=== PATIENT | female | born 1980 | race African-American/Black ===

== ENCOUNTER 2016-11-28 17:38 | Emergency (ER) | payer MEDICAID, OTHER ==
[~2016-11-28] VITALS: Ht 177.8 cm; Wt 89.8 kg
[~2016-11-28 17:38] MED LIST: IBUPROFEN600 MG PO
--- NOTE | 2016-11-28 18:21 | Emergency Room Report ---
History of Present Illness General Chief Complaint: Upper Extremity Injury Source: Patient Present Illness HPI 36 y/o female c/o right wrist and thumb pain x 2 days. States that she woke up yesterday with thumb pain that has progressively gotten worse. States she does not remember injuring it but believes she may have flailed while sleeping and hit her hand on the headboard. 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 States she does a lot of lifting and use of the right hand / wrist at work and has no hx of previous injury or surgeries of right hand. States pain is worse with pronating right wrist and with movement of thumb. Took 200mg ibuprofen w/o improvement of sxs. Patient denies any numbness, tingling, pressure, paralysis, cyanosis, bruising, loss of sensation, or loss of range of motion. Allergies: Coded Allergies: Nut Tree (Verified Allergy, Severe, Anaphylaxis, 04/10/12) Patient History Past Medical History: see triage record Past Surgical History: none Pertinent Family History: none Last Menstrual Period: 2 years ago (pituitary adenoma) Now: No Immunizations: UTD Reviewed Nursing Documentation: PMH: Agreed, PSxH: Agreed Nursing Documentation-PMH Past Medical History: No History, Except For History Of Psychiatric Problem: Yes - bipolar Review of Systems All Other Systems: negative except mentioned in HPI Physical Exam Vital Signs Date Time Temp Pulse Resp B/P Pulse Ox O2 Delivery O2 Flow Rate FiO2 11/28/16 17:53 98.4 63 14 132/74 98 Room Air Sp02 EP Interpretation: reviewed, normal General Appearance: no apparent distress, alert, GCS 15, non-toxic Head: normocephalic, atraumatic Eyes: bilateral eye normal inspection ENT: normal ENT inspection Neck: normal inspection Respiratory: normal breath sounds, speaking full sentences Cardiovascular #1: normal peripheral pulses Cardiovascular #2: 1+ radial (R), 1+ radial (L) Musculoskeletal: back normal, digits/nails normal, gait/station normal, normal range of motion, tender - extensor surface of left thumb and along volar aspect of right distal radius. Neg Tinels, Neg Phalens Neurologic: alert, oriented x3, responsive, motor strength/tone normal, sensory intact, speech normal Psychiatric: judgement/insight normal, memory normal, mood/affect normal, no suicidal/homicidal ideation Skin: normal color, no rash, warm/dry, well hydrated Lymphatic: no adenopathy Medical Decision Making PA Attestation Dr. Rodas is my supervising physician with whom patient management has been discussed with. ER Course Pt. presents to the ED c/o right wrist pain Ddx considered but are not limited to sprain, strain, fracture, contusion, carpal tunnel, tendonitis Vital signs: are WNL, pt. is afebrile H&PE are most consistent with tendonitis ORDERS: XR right hand ED INTERVENTIONS: Thumb Spika brace DISCHARGE: At this time pt. is stable for d/c to home. Will provide printed patient care instructions, and any necessary prescriptions. Care plan and follow up instructions have been discussed with the patient prior to discharge. Other X-Ray Diagnostic Results Other X-Ray Diagnostic Results : X-Ray Ordered: Right hand Date: Nov 28, 2016 EP Interpretation: Yes Findings: no fractures, no dislocation Number of Views: 3 Last Vital Signs Date Time Temp Pulse Resp B/P Pulse Ox O2 Delivery O2 Flow Rate FiO2 11/28/16 17:53 98.4 63 14 132/74 98 Room Air Status: unchanged Disposition: HOME, SELF-CARE Condition: Stable Scripts Naproxen* (NAPROXEN*) 500 Mg Tablet. 500 MG ORAL TWICE A DAY, #20 TAB Prov: REGINALD DOCKERY 11/28/16 Patient Instructions: Thumb Sprain Additional Instructions: Take medication as directed. Patient advised to follow up with primary care provider within next 1-2 weeks if no improvement. Keep splint as directed for comfort. Advised patient to use RICE therapy and nsaids as prescribed. Patient is to go to the ER immediately if they experience any pain that is not responding to medication, excess swelling, pressure feeling, loss of color, cyanosis, paralysis, or numbness. REGINALD DOCKERY Nov 28, 2016 18:21
[2016-11-28 18:22] VITALS: BP 132/74
[2016-11-28] MEDS ORDERED: NAPROXEN500 M1 ORAL (18:28)
[2016-11-28 18:29] VITALS: BP 132/74
--- NOTE | 2016-11-29 11:36 | Diagnostic Imaging Report ---
Indication: pain Findings: 3 views of the right hand were obtained. Normal bony mineralization and alignment are demonstrated. No acute fractures, erosions, or periosteal reaction are seen. Soft tissues are unremarkable. The shaft of the fifth metacarpal slightly enlarged which may be a sign of an old injury. Please correlate clinically. Impression: No acute injury identified
== END 2016-11-28 18:30 | disposition home or self-care (01) ==
LOC: EMR 18:10
DX: M25.531 Pain in right wrist (principal); M25.541 Pain in joints of right hand; Z91.018 Allergy to other foods; Z86.59 Personal history of other mental and behavioral disorders
CPT/HCPCS: 29280; 99283